=== PATIENT | male | born 1955 | race Caucasian/White ===

== ENCOUNTER 2020-05-17 14:30 | Outpatient (CLI) | payer MEDICARE, MEDICAID, SELFPAY ==
--- NOTE | 2020-05-17 15:00 | USCV_ITS ---
Alexx Killian Age: 64 Gender: M : 1955 Exam Date: 05/17/2020 15:02 Ordering Phys: Alvin Adrian M.D ([email or web address]) Technologist: Yazmin Spear Exam Location: [facility] – [place] Indication: BILATERAL SEVERE CLAUDICATION Risk Factors: Previous Vascular Surgery: RT-LT FEM-FEM BYPASS RIGHT LEFT BP: 133.0 / BP: 158.0/ 0 0 Waveform Velocity (cm/s) Velocity (cm/s) Waveform 80.1 Iliac Prox 94.1 Iliac Mid Iliac Distal 80.9 47.6 ASSET MANAGER 10.8 SFA Prox 10.3 16.7 SFA Mid 16.7 17.8 SFA Dist 18.2 20.4 POP 11.1 27.1 VP PACKAGING 11.2 0.6 MARYANN 0.6 FINDINGS RT-LT FEM-FEM BYPASS Low velocity delayed rising continuous Doppler waveform in the superficial femoral arteries bilaterally No Doppler flow signals in the left iliac and common femoral artery No Doppler flow signals in the dorsalis pedis arteries bilaterally No flow was detected in the femorofemoral bypass graft. Abnormal resting ABIs bilaterally CONCLUSIONS The femorofemoral bypass rate appears to be occluded Features of total occlusion of the left iliac and common femoral artery. Very sluggish flow in the superficial femoral arteries bilaterally. Features suggestive of collateral filling of the popliteal and infrapopliteal vessels bilaterally Dr Dina Sim MD [facility] (Electronically Signed) Final Date: 17 May 2020 20:31 S
== END 2020-05-17 14:31 | disposition home or self-care (01) ==
LOC: RAD 14:34
PROVIDERS: Family Provider Nurse Practitioner Family; PCP Nurse Practitioner Family; Visit Provider Internal Medicine
DX: I73.9 Peripheral vascular disease, unspecified (principal)
CPT/HCPCS: 93925

== ENCOUNTER → 2020-05-24 13:07 | Outpatient (BNVA) | payer MEDICARE, MEDICAID, SELFPAY | PROVIDERS: Family Provider Nurse Practitioner Family; PCP Nurse Practitioner Family; Visit Provider Internal Medicine | DX: I73.9 Peripheral vascular disease, unspecified (principal) | CPT/HCPCS: 80048 ==

== ENCOUNTER 2020-06-07 07:38 | Outpatient (CLI) | payer MEDICARE, MEDICAID, SELFPAY ==
--- NOTE | 2020-06-07 08:00 | CT_ITS ---
WS: [id number] CTA ABDOMINAL AORTA WITH RUNOFF TECHNIQUE: Contrast enhanced CTA of the abdominal aorta with bilateral lower extremity runoff. Multip lanar reformatted images were obtained. MIP reformats were also reviewed. CLINICAL INFORMATION: CTA of lower extremities to guide revascularization COMPARISON: None. DLP: 1187.[address] scans at [facility] use at least one of these dose optimization techniques: automat ed exposure control; mA and/or kV adjustment per patient size (includes targeted exams where dose is matched to clinical indication); or iterative reconstruction. FINDINGS: Postoperative changes aortic endograft with biiliac extension Distal abdominal aorta. RIGHT: High-grade stenosis right common iliac artery at the distal aspect of the stent. Distal common iliac artery is patent. External and internal iliac arteries are patent with mild calcification. Pro ximal common femoral artery is patent. Femorofemoral bypass graft appears occluded. Right superficial femoral artery is occluded at the origin. Deep femoral artery is patent. Superficial femoral artery is occluded with stent occluded to the adductor hiatus. Popliteal artery is occluded at the origin. T his reconstitutes via collaterals just above the knee and is patent to the trifurcation with three-ve ssel runoff to the ankle. LEFT: Common iliac artery stent is occluded. External iliac artery is occluded. External iliac artery is occluded to the common femoral artery which is also occluded. Femorofemoral bypass graft is occluded. Deep femoral artery is patent. Tiny superficial femoral arter y with collateral flow. Popliteal artery is patent above the knee. Normal 3 vessel runoff to the ankl e. CT/[id number] IMPRESSION: 1. RIGHT: High-grade stenosis of the right common iliac artery at the distal a spect of the stent. Common femoral artery is occluded at the origin. Superficia l femoral artery stent is occluded. Popliteal artery reconstitutes via collater als above the knee with three-vessel runoff to the ankle. 2. LEFT: Left common iliac artery stent is occluded. The external and common f emoral arteries are occluded. Tiny superficial femoral artery with collateral f low. Popliteal artery is patent with three-vessel runoff to the ankle. 3. Occluded femorofemoral bypass graft.
[2020-06-07] MEDS: iohexol 350 mg/mL 100 mL Btl IV (09:00)
== END 2020-06-07 07:39 | disposition home or self-care (01) ==
LOC: RADWPI 07:45
PROVIDERS: Family Provider Family Medicine; PCP Family Medicine; Visit Provider Internal Medicine
DX: I73.9 Peripheral vascular disease, unspecified (principal); T82.856A Stenosis of peripheral vascular stent, initial encounter; Y82.8 Other medical devices associated with adverse incidents
CPT/HCPCS: 73706; Q9967

== ENCOUNTER 2020-06-18 11:06 | Outpatient (CLI) | payer MEDICARE, MEDICAID, SELFPAY ==
[2020-06-18 11:49] LABS: Basophils # 0.1 10^3/uL (0.0-0.1); Basophils % 0.8 %; Eosinophils # 0.3 10^3/uL (0.0-0.8); Hematocrit 50.4 % (42.0-52.0); Hemoglobin 16.3 g/dL (11.7-16.6); Lymphocytes # 2.3 10^3/uL (0.8-4.8); Lymphocytes % 25.8 %; Mean Corpuscular HGB Conc 32.3 g/dL (30.0-36.0); Mean Corpuscular Volume 98.8 fL (80-94); Mean Platelet Volume 9.4 fL (7.4-10.4); Monocytes # 0.8 10^3/uL (0.2-0.9); Monocytes % 9.4 %; Neutrophils # 5.31 10^3/uL (1.8-7.7); Neutrophils % 60.7 %; Nucleated Red Blood Cells % 0 %; Platelet Count 221 10^3/cmm (130-400); Red Cell Distribution Width 12.7 % (12.1-15.1); White Blood Count 8.8 10^3/uL (4.0-10.0)
[2020-06-18 11:59] LABS: INR 0.83 (0.8-1.2)
[2020-06-18 12:07] LABS: Anion Gap 14.9 (5-19); Blood Urea Nitrogen 9 mg/dL (8-23); Calcium 9.2 mg/dL (8.5-10.5); Carbon Dioxide 26 mmol/L (22-29); Chloride 103 mmol/L (98-107); Glomerular Filtration Rate 85.5 mL/min (90-130); Glucose 109 mg/dL (65-115); Osmolality Calculated 285 mOsm/kg (285-295); Potassium 4.9 mmol/L (3.5-5.1); Sodium 139 mmol/L (136-145)
== END 2020-06-18 11:07 | disposition home or self-care (01) ==
LOC: LAB 11:10
PROVIDERS: Internal Medicine; PCP Family Medicine; Visit Provider Family Medicine
DX: Z01.812 Encounter for preprocedural laboratory examination (principal)
CPT/HCPCS: 36415; 80048; 85025; 85610; 87635

== ENCOUNTER 2020-06-22 07:16 | Day surgery (SDC) | payer MEDICARE, MEDICAID, SELFPAY ==
[2020-06-21 08:46] VITALS: BMI 30.2
[2020-06-22] VITALS (20 sets, daily range): BP systolic 128–182; BP diastolic 74–98; PULSE 60–79; RESP 13–23; TEMP 36.8; O2SAT 94–99
--- NOTE | 2020-06-22 | USCV_ITS ---
Alexx Killian Age: 64 Gender: M : 1955 Exam Date: 06/22/2020 09:04 Ordering Phys: Alvin Adrian M.D ([email or web address]) Technologist: Andre Herrera Exam Location: 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 Dr. Janee Acuña DO (Electronically Signed) Final Date: 22 June 2020 15:49 S
--- NOTE | 2020-06-22 07:00 | XACV_ITS ---
Wt: 96 kg BSA: 2.20 m2 Any Known Allergies: Other Gender: Male : 1955 Exam Type: Invasive Peripheral Vascular - Dual Bumpass Procedure(s): Procedure Description: Peripheral Cath Diagnostic Procedure Exam Priority: Routine Lower Extremity Diagnostic Findings Occluded right popliteal artery. Occluded Right SFA. Lower Extremity Interventional Findings Patient had been having severe claudication and is able to walk a few feet before leg pain forces him to take a rest. Yadi duran was brought to the [employer] [facility] to attempt revascularization of the right lower extremity. CTA with runoff was already done which showed three-vessel runoff to the foot however significant disease was noted above the knee. We obtained access in the right posterior tibial artery with ultrasound guidance. A 6 Serbian sheath was inserted. We used 0.035 Glidewire and seeker support catheter. Contrast injection showed proximal popliteal artery was occluded. SFA was completely occluded with occluded stents in it. We used a Glidewire and seeker catheter to attempt crossing the occluded segment. However Glidewire was tracking behind the SFA stent indicating that the wire was in dissection plane. We switched the support catheter to NAVICROSS but were unable to cross the long completely occluded segement. At this point we decided to stop further attempts at crossing the occluded segment. Guidewire and support catheter were removed. Sheath was removed from the right posterior tibial artery. Conclusions Severe peripheral artery disease. Severe bilateral lower extremity claudication. Unsuccessful attempt at revascularization of right lower extremity arteries. Recommendations We will attempt further optimization of medical therapy. Patient has been strongly advised to stop smoking. I have started cilostazol 50 mg twice daily. Stop Plavix. Continue aspirin. We will follow patient in office and reassess his symptoms. If there is no improvement in symptoms or progression of disease to critical limb ischemia, we will attempt revascularization of the left lower extremity. Access Site Site: Right Popliteal Sheath Size: 6 Fr Hemost... Success: Unsuccessful Site: Right Popliteal Sheath Size: 6 Fr Hemost... Method: Manual Compression Hemost... Success: Successful Procedure Details Findings Procedure Consent Obtained. Pre-Procedure Time Out. Identified patient by full name and date of as verbalized by the patient/guarantor. Does the consent match the physician's order: Yes. Accurate & Complete Informed Consent: Yes. Inpatient/Outpatient History & Physical on Chart: Yes. If H&P is completed, is and addenduem needed: N/A; If yes, is the addendum complete: N/A. Visualize and Verify Site with Patient/Guarantor: N/A. Relevant Radiology Images available: Yes. Pre-op teaching completed and patient verbalized understanding. The risks, benefits, and alternatives of sedation and/or procedure were discussed by physician. The patient agrees to continue. Procedure started. Correct patient, site and procedure confirmed by cath team. PERRLA. 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 Lungs clear x 5 lobes. IV Fluids: 0.9% NaCl at KVO. 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 Oxygen started at 2liters/min via nasal canula. bilateral groins was prepped with chloroprep then draped in the usual sterile fashion. Physician notified. Equipment: 6F - Femoral. Cardiac Cath Pack. ACIST Manifold Kit Model BT 2000. Heparinized Saline (2 units/mL), 1000 mL bag. Kit, Micropuncture. right tibial area prepped. Baseline sample Acquired. HR: 69 BPM. Physician arrived. Andre (US) here to assist. Physician scrubbed in. Immediate Pre-Procedure Time Out. Correct Patient: Yes; Correct Procedure: Yes; Correct Site: Yes; Correct Patient Position: Yes; Correct Supplies: Yes; Dried Flammable Prep: Yes; Blood Products Available: No;. Lidocaine 1% infiltrated to the right tibial. Arterial access obtained with micropuncture set. [place]leton wire inserted. Littleton wire out. Hand injection performed. Sheath out. Pressure held. Hand injection performed. [place]leton wire removed. seeker inserted over glide wire. Wire out. Hand injection performed. glidwire inserted. Patient's family unavailable. glide wire out. command wire inserted. wire out. glide wire inserted. seeker out. navicross inserted. navicross removed. sheath out. pressure held. US called. Lidocaine 1% infiltrated to the right groin. Patient's family updated. Andre (US) arrived. A Manual Compression was successful obtaining hemostatsis at the Right Popliteal insertion site. Sheath(s) removed and manual pressure held until hemostasis was achieved. Sterile 4x4 and Op-site applied to the puncture site. No oozing or hematoma noted. Post sheath removal instructions were given and the patient verbalized understanding. Post Procedure: Pulses reassessed and unchanged. PERRLA. 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 No VTE prophylaxis required. Fluoro: 37:50. Contrast type used: Visipaque 320 mgI/mL, 200 mL bottle. [id number]. Complications: none. Estimated blood loss: 5mL-10mL. Procedure completed. Patient transferred by bed to 1st floor. Post-op diagnosis: occluded right SFA. Total IV fluids: 150 mL. Vital chart was stopped. Medication's Wasted: Lidocaine 1% = 10 mL. Medication's Wasted: Heparin = 1000 units. Procedure Medications Start: 9:08 AM Stop: 9:08 AM Medication: Versed Amount: 1 mg Route: I.V. Start: 9:08 AM Stop: 9:08 AM Medication: Fentanyl Amount: 50 mcg Route: I.V. Start: 9:20 AM Stop: 9:20 AM Medication: Versed Amount: 1 mg Route: I.V. Start: 9:20 AM Stop: 9:20 AM Medication: Fentanyl Amount: 50 mcg Route: I.V. Start: 10:02 AM Stop: 10:02 AM Medication: Versed Amount: 1 mg Route: I.V. Start: 10:02 AM Stop: 10:02 AM Medication: Fentanyl Amount: 50 mcg Route: I.V. Start: 10:37 AM Stop: 10:37 AM Medication: Versed Amount: 1 mg Route: I.V. Start: 10:37 AM Stop: 10:37 AM Medication: Fentanyl Amount: 50 mcg Route: I.V. Start: 10:54 AM Stop: 10:54 AM Medication: Versed Amount: 1 mg Route: I.V. Start: 10:54 AM Stop: 10:54 AM Medication: Fentanyl Amount: 50 mcg Route: I.V. History/Risk Factors Hypertension: Yes Dyslipidemia: Yes Diabetic Therapy: Oral Peripheral Arterial Disease (PAD): Yes Myocardial Infarction (MN): Yes Obesity: No Renal Disease: No Tobacco Use: Current/Recent(w/in 1 year) Prior Interventions PCI: No CABG: No Valve Surgery: No Report Signatures Interventional Workflow - Finalized by:Alvin Adrian MD on 06/23/2020 10:19:35 AM Diagnostic Workflow - Finalized by:Alvin Adrian MD on 06/23/2020 10:19:35 AM
[2020-06-22] MEDS: diphenhydrAMINE 50 mg Capsule PO (07:52)
[2020-06-22] MEDS: aspirin 325 mg Tablet PO (08:10)
--- NOTE | 2020-06-22 08:19 | P.HP_ITS ---
Providers/Chief Complaint Primary Care Provider: Eduarda Bonds MD Chief Complaint: peripheral angiogram History of Present Illness Alexx Killian is a 64 year old male with past medical history of peripheral artery disease, diabetes, smoking and hypertension is here for peripheral angiogram with possible intervention. Patient has been having lifestyle limiting claudication and now can hardly walk a few feet before having to stop because of bilateral leg pain. CTA was performed that showed severe peripheral artery disease above the knee bilaterally with collaterals supplying below the knee vasculature with three-vessel runoff on both sides. We plan to attempt revascularization today. Review of Systems Narrative: CONSTITUTIONAL: No fever chills weight loss or gain or night sweats. [] HEENT: Normocephalic, atraumatic.[] RESPIRATORY: No cough, sputum, hemoptysis or wheezing.[] CARDIOVASCULAR: No shortness of breath, chest pain, PND, orthopnea, lower extremity edema, presyncope or syncope. [] GI: no nausea vomiting diarrhea. [] GAME PROTECTOR: No numbness, tingling, weakness or loss of function in any part of the body. [] MUSCULOSKELETAL: Bilateral leg pain [] Medications/Allergies Home Medications Medication Instructions Recorded Confirmed Last Taken Type aspirin 325 mg tablet 325 mg PO DAILY 12/16/19 06/22/20 06/22/20 07:55 History clopidogrel 75 mg tablet 75 mg PO DAILY 12/16/19 06/22/20 06/18/20 History ipratropium 20 mcg-albuterol 100 1 puff INHALATION Q4H PRN 12/16/19 06/22/20 Unknown History mcg/actuation mist for inhalation lisinopril 20 mg tablet 20 mg PO DAILY 12/16/19 06/22/20 06/22/20 06:00 History metformin 500 mg tablet 1,000 mg PO BID 12/16/19 06/22/20 06/21/20 18:00 History metoprolol tartrate 50 mg tablet 50 mg PO BID 12/16/19 06/22/20 06/22/20 06:00 History nitroglycerin 0.4 mg sublingual 0.4 mg SUBLINGUAL Q5M PRN 12/16/19 06/22/20 Unknown History tablet pravastatin 80 mg tablet 80 mg PO DAILY 90 Days #90 tab 12/22/19 06/22/20 06/21/20 18:00 Rx Allergies Allergy/AdvReac Type Severity Reaction Status Date / Time No Known Allergies Allergy Unverified 06/08/20 13:57 PFSH Acute PFSH: Medical History CAD (coronary artery disease) Dyslipidemia HTN (hypertension) Peripheral arterial disease Tobacco abuse Family History Other CAD (coronary artery disease) Cancer Diabetes Stroke Vitals/I&O/Wt Last Vital Signs Temp 98.3 F 06/22/20 07:47 Pulse 79 06/22/20 07:47 Resp 16 06/22/20 07:47 BP 182/93 06/22/20 07:47 Pulse Ox 99 06/22/20 07:47 Weight last 48 hrs Weight 211 lb Physical Exam Narrative: EXAM NARRATIVE: GENERAL: Patient is alert, awake and oriented x3. [] NECK: No jugular vein distension. [] HEENT: No cyanosis. No icterus. No pallor. [] HEART: Regular S1 and S2. No murmur, rub or gallop. [] LUNGS: Clear to auscultate bilaterally. [] ABDOMEN: Soft, nontender and nondistended. Positive bowel sounds. No guarding, rebound or tenderness. [] CENTRAL NERVOUS SYSTEM: Grossly nonfocal. [] EXTREMITIES: Lower extremities with no significant edema bilaterally. Markedly diminished pulses bilaterally. [] A&P Assessment and plan (1) Severe claudication: Status: Acute (2) CAD (coronary artery disease): Status: Acute (3) Tobacco abuse: Status: Acute (4) HTN (hypertension): Status: Acute (5) Peripheral arterial disease: Status: Acute (6) Dyslipidemia: Status: Acute Patient has severe lifestyle limiting claudication. Plan for peripheral intervention attempt. We will likely access from tibial artery. 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
--- NOTE | 2020-06-22 11:00 | PC.NURSE ---
pt received from slab lifting supervisor via bed. pt educated on bedrest restrictions. dressing is c/d/i. bilateral tibial pulses faint but dopplerable. call light within reach. no needs identified at this time. will continue to monitor.
[2020-06-22] MEDS: clopidogrel 75 mg Tablet PO (12:42)
--- NOTE | 2020-06-22 14:40 | PC.NURSE ---
pt and family informed of discharge orders. after pt completes bed rest if no issues arise pt could be discharged.
[2020-06-22] MEDS: metoprolol tartrate 50 mg Tablet PO (17:15)
[2020-06-22] MEDS: metformin 500 mg Tablet 1000 MG PO (17:15)
--- NOTE | 2020-06-22 17:46 | PC.NURSE ---
discharge instructions given. all questions answered at this time. iv removed, tip intact. pt escorted via wheelchair to vehicle.
== END 2020-06-22 17:49 | disposition home or self-care (01) ==
LOC: CCL 11:10 → CSU 11:43
PROVIDERS: PCP Family Medicine; Visit Provider Internal Medicine
DX: E11.51 Type 2 diabetes mellitus with diabetic peripheral angiopathy without gangrene (principal); I10 Essential (primary) hypertension; E78.5 Hyperlipidemia, unspecified; I25.10 Atherosclerotic heart disease of native coronary artery without angina pectoris; Z79.82 Long term (current) use of aspirin; Z79.84 Long term (current) use of oral hypoglycemic drugs
CPT/HCPCS: 12345; 36415; 76937; C1769; C1887; C1894; J1644; J2250; J3010; J7030; Q0163; Q9967

== ENCOUNTER → 2020-06-30 13:21 | Outpatient (BNVA) | payer MEDICARE, MEDICAID, SELFPAY | PROVIDERS: PCP Family Medicine; Visit Provider Nurse Practitioner Family | DX: I73.9 Peripheral vascular disease, unspecified (principal) | CPT/HCPCS: 80048 ==

== ENCOUNTER 2020-12-29 09:40 | Outpatient (CLI) | payer MEDICARE, MEDICAID, SELFPAY ==
[2020-12-29 10:03] LABS: Basophils # 0.1 10^3/uL (0.0-0.1); Basophils % 1.1 %; Eosinophils # 0.2 10^3/uL (0.0-0.8); Eosinophils % 2.7 %; Hematocrit 50.5 % (42.0-52.0); Hemoglobin 16.7 g/dL (11.7-16.6); Lymphocytes # 2.4 10^3/uL (0.8-4.8); Lymphocytes % 30.3 %; Mean Corpuscular HGB Conc 33.1 g/dL (30.0-36.0); Mean Corpuscular Hemoglobin 31.9 pg (28.0-34.0); Mean Corpuscular Volume 96.4 fL (80-94); Mean Platelet Volume 9.5 fL (7.4-10.4); Monocytes # 0.7 10^3/uL (0.2-0.9); Monocytes % 9.1 %; Neutrophils # 4.43 10^3/uL (1.8-7.7); Neutrophils % 56.5 %; Nucleated Red Blood Cells % 0 %; Platelet Count 236 10^3/cmm (130-400); Red Blood Count 5.24 10^6/uL (4.1-5.3); Red Cell Distribution Width 12.4 % (12.1-15.1); White Blood Count 7.8 10^3/uL (4.0-10.0)
[2020-12-29 10:31] LABS: Anion Gap 11.8 (5-19); Blood Urea Nitrogen 8 mg/dL (8-23); Calcium 9.2 mg/dL (8.5-10.5); Carbon Dioxide 30 mmol/L (22-29); Chloride 105 mmol/L (98-107); Glomerular Filtration Rate 97.6 mL/min (90-130); Glucose 96 mg/dL (65-115); Osmolality Calculated 294 mOsm/kg (285-295); Potassium 3.8 mmol/L (3.5-5.1); Sodium 143 mmol/L (136-145)
== END 2020-12-29 09:41 | disposition home or self-care (01) ==
PROVIDERS: PCP Family Medicine; Visit Provider Internal Medicine
DX: I73.9 Peripheral vascular disease, unspecified (principal)
CPT/HCPCS: 36415; 80048; 85025; 85610; 87635

== ENCOUNTER 2021-01-06 05:40 | Day surgery (SDC) | payer MEDICARE, MEDICAID, SELFPAY ==
[2021-01-06] VITALS (12 sets, daily range): BP systolic 106–166; BP diastolic 73–100; PULSE 60–92; RESP 13–18; TEMP 36.6; O2SAT 95–99; BMI 30.5
--- NOTE | 2021-01-06 06:21 | XACV_ITS ---
Ht: 178 cm Wt: 97 kg BSA: 2.21 m2 Any Known Allergies: Other Gender: Male : 1955 Exam Type: Invasive Peripheral Vascular Procedure(s): Procedure Description: Peripheral Cath Diagnostic Procedure Procedure Description: Peripheral arthrectomy Procedure Description: Peripheral stent placement Procedure Description: Peripheral balloon angioplasty Exam Priority: Routine Lower Extremity Diagnostic Findings Indication: Patient has severe peripheral artery disease history with unsuccessful attempt at revascularization of right lower extremity. He has been having severe lifestyle limiting claudication in both lower extremities. Plan for attempt at revascularization of left lower extremity. Per prior CT scan of the lower extremities, no access site available from contralateral side or ipsilateral side above the knee.. Patient continues to smoke. Patient has three-vessel runoff below the knee on the left side with patent AT, PT and peroneal artery. Slow flow is noted. Left popliteal artery: Patent Left SFA: Mid segment occlusion Left common femoral artery: Occluded Left external and common iliac arteries have stents that are occluded. Distal aorta subtotal occlusion.. Lower Extremity Interventional Findings Procedure detail: We obtained access in left popliteal artery. Angiogram was performed that showed occluded mid SFA artery. Using seeker support catheter 0.035 Glidewire was used to cross into distal aorta. We initially performed CSI atherectomy of SFA. This was followed by balloon angioplasty starting from left common iliac artery using initially a 6.0X 250 mm balloon followed by a 7.0 X 100 mm balloon in external and common iliac arteries. We also performed balloon angioplasty of the prox SFA with a 7.0x60mm balloon. At this time we extended a pigtail catheter into distal aorta and did DSA that showed an occlusion at ostial common iliac artery. Right-sided iliac arteries were occluded with occluded stents on both sides.We placed a 7.0x 59mm Omnilink stent in the ostial left common iliac artery extending into the distal aorta. Proximal SFA also had severe stenosis and was treated with 6.0 x 39 mm Omnilink stent. At this time another angiogram was performed that showed that in mid to distal SFA, there was a hazy severe stenosis. We initially did balloon angioplasty however the stenosis treated today. We placed a 6.0 x 19 mm stent to cover the area of stenosis. At this time final angiogram was performed that showed excellent flow throughout the left lower extremity vasculature. Was sutured in place for removal later. 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 Conclusions Severe peripheral artery disease with occluded vasculature starting from distal aorta/left common iliac artery down to the mid SFA. Successful reavascularization with orbital arthrectomy/stents x 3 and multiple balloon angioplasties. Occluded right common iliac artery. Recommendations Admit to CSU. Eliquis 2.5mg BID and Plavix 75mg Daily. Smoking cessation strongly suggested. Will discuss options for revascularization of the right lower extremity on his clinic visit. Outpatient cardiology follow up. Access Site Site: Left Popliteal Sheath Size: 6 Fr Hemost... Method: Suture Hemost... Success: Successful Procedure Details Findings Procedure Consent Obtained. Admit Source: Out Patient. Pre-Procedure Time Out. Identified patient by full name and date of as verbalized by the patient/guarantor. Does the consent match the physician's order: Yes. Accurate & Complete Informed Consent: Yes. Inpatient/Outpatient History & Physical on Chart: Yes. If H&P is completed, is and addenduem needed: N/A; If yes, is the addendum complete: N/A. Visualize and Verify Site with Patient/Guarantor: N/A. Relevant Radiology Images available: N/A. Pre-op teaching completed and patient verbalized understanding. The risks, benefits, and alternatives of sedation and/or procedure were discussed by physician. The patient agrees to continue. Procedure started. Correct patient, site and procedure confirmed by cath team. PERRLA. Strong, equal hand small package and bundle sorter clerk bilaterally. Lungs clear x 5 lobes. IV Site on Arrival: 20 gauge in the right anticubital. Pre Procedural Pulses: bilateral dorsalis pedis was Absent. Pre Procedural Pulses: bilateral posterior tibial was Doppled. Pre Procedural Pulses: bilateral radial was 1+. Oxygen started at 2liters/min via nasal canula. popliteal was prepped with chloroprep then draped in the usual sterile fashion. Physician notified. Baseline sample Acquired. HR: 118 BPM. Physician arrived. ultra sound arrived. Physician scrubbed in. Immediate Pre-Procedure Time Out. Correct Patient: Yes; Correct Procedure: Yes; Correct Site: Yes; Correct Patient Position: Yes; Correct Supplies: Yes; Dried Flammable Prep: Yes; Blood Products Available: N/A;. Dr. Elizabeth scrubbed in for assistance. Lidocaine 1% infiltrated to the left popliteal. Arterial access obtained with micropuncture set. handinjection performed. glidewire inserted. seeker going in over stiff angle glide. hand injection performed through the seeker. seeker is seated in the prox SFA. wire out. hand injection performed through the seeker. seeker seating in the descending aorta. viper wire inserted. anthorectomy of the common femoral and SFA. seeker out. shahida going in over viper wire. antherectomy performed in the prox SFA. coming out with device. seeker inserted. viper wire out. stiff angle glide inserted. seeker out. Inflation number : 1 A AB [place] 35 CUT FILE CLERK Catheter [id number] was prepped and advanced across the Proximal Common Iliac, Left , then inflated to 6 POONAM for 2:01 seconds. Inflation number: 1 The AB [place] 35 CUT FILE CLERK Catheter [id number] was reinflated across the Proximal Superficial Femoral, Left, to 12 POONAM for 2:03 seconds. Inflation number: 1 The AB [place] 35 CUT FILE CLERK Catheter [id number] was reinflated across the Mid Superficial Femoral, Left, to 16 POONAM for 2:01 seconds. Balloon out. Inflation number: 3 The AB [place] 35 OTW [id number] was reinflated across the Proximal Common Iliac, Left, to 6 POONAM for 2:01 seconds. Inflation number: 1 The AB [place] 35 OTW [id number] was reinflated across the External Iliac, Right, to 8 POONAM for 2:03 seconds. Inflation number: 2 The AB [place] 35 OTW [id number] was reinflated across the External Iliac, Right, to 8 POONAM for 1:01 seconds. Balloon out. Inflation number : 1 A AB [place] 35 OTW [id number] was prepped and advanced across the Proximal Superficial Femoral, Left , then inflated to 6 POONAM for 0:19 seconds. Inflation number: 2 The AB [place] 35 OTW [id number] was reinflated across the Proximal Superficial Femoral, Left, to 8 POONAM for 0:12 seconds. Inflation number: 3 The AB [place] 35 OTW [id number] was reinflated across the Proximal Superficial Femoral, Left, to 6 POONAM for 0:15 seconds. Inflation number: 4 The AB [place] 35 OTW [id number] was reinflated across the Proximal Superficial Femoral, Left, to 8 POONAM for 0:16 seconds. Inflation number: 5 The AB [place] 35 OTW [id number] was reinflated across the Proximal Superficial Femoral, Left, to 12 POONAM for 0:13 seconds. Inflation number: 6 The AB [place] 35 OTW [id number] was reinflated across the Proximal Superficial Femoral, Left, to 10 POONAM for 0:10 seconds. Balloon out. Inflation number : 2 A AB [place] 35 OTW [id number] was prepped and advanced across the Proximal Superficial Femoral, Left , then inflated to 8 POONAM for 0:18 seconds. Inflation number: 3 The AB [place] 35 OTW [id number] was reinflated across the Proximal Superficial Femoral, Left, to 15 POONAM for 1:50 seconds. Balloon out. Balloon out. A 5 citizen [place] Angled Pig catheter in over wire. Pigtail postioned above the bifurcation of the iliacs. Aortagram performed @ 10 mL/sec for a total of 40 mL. glide wire inserted. Catheter out. A 5 citizen [place] MPA1 catheter in over wire. glide wire out. glidewire inserted. Catheter out. Inflation Number : 1 A Omnilink Elite [id number] -Lot Number# [id number] exp date: 08-07-2023 was prepped and advanced across the Ostial Common Iliac, Left1. The stent was deployed at 11 POONAM for 1:02 seconds. Stent balloon out over wire. A 5 citizen [place] Angled Pig catheter in over wire. wire out. Pigtail postioned above the bifurcation of the iliacs. Aortagram performed @ 10 mL/sec for a total of 20 mL. runoff 10ml/sec for a total of 30mL. checking results. glidewire inserted. Catheter out. old sheath out and holding mannual pressure. new 6F sheath inserted into popliteal region. handinjection performed. Inflation number : 1 A AB [place] 35 OTW [id number] was prepped and advanced across the Popliteal, Left , then inflated to 14 POONAM for 1:18 seconds. Inflation number: 2 The AB [place] 35 OTW [id number] was reinflated across the Popliteal, Left, to 14 POONAM for 1:06 seconds. Inflation number: 3 The AB [place] 35 OTW [id number] was reinflated across the Popliteal, Left, to 14 POONAM for 0:12 seconds. Inflation number: 4 The AB [place] 35 OTW [id number] was reinflated across the Popliteal, Left, to 14 POONAM for 1:07 seconds. Balloon out. handinjection performed. handinjection performed. Inflation Number : 5 A Omnilink Elite [id number] -Lot Number#[id number] exp date: 05-07-2021 was prepped and advanced across the Popliteal, Left. The stent was deployed at 12 POONAM for 1:10 seconds. handinjection perfomed. checking results. A 5 citizen [place] Angled Pig catheter in over wire. wire out. Pigtail postioned above the bifurcation of the iliacs. Aortagram performed @ 10 mL/sec for a total of 40 mL. checking results. Catheter out. stent out. undeployed. Inflation number : 4 A Omnilink Elite [id number] was prepped and advanced across the Proximal Superficial Femoral, Left , then inflated to 12 POONAM for 1:01 seconds. Stent balloon out over wire. handinjection performed 10mL/sec for a total of 30mL. checking results. Inflation number: 6 The Omnilink Elite [id number] was reinflated across the Proximal Superficial Femoral, Left, to 12 POONAM for 0:18 seconds. Inflation number: 1 The Omnilink Elite [id number] was reinflated across the Proximal Superficial Femoral, Left1, to 14 POONAM for 0:51 seconds. Inflation number: 2 The Omnilink Elite [id number] was reinflated across the Proximal Superficial Femoral, Left1, to 10 POONAM for 1:03 seconds. A 5 citizen [place] Angled Pig catheter in over wire. wire out. Pigtail postioned above the bifurcation of the iliacs. Aortagram performed @ 10 mL/sec for a total of 20 mL. Catheter out. Inflation Number : 1 A Omnilink Elite [id number] -Lot Number# was prepped and advanced across the Mid Superficial Femoral, Left1. The stent was deployed at 12 POONAM for 0:29 seconds. Inflation number: 2 The stent balloon was then re-inflated across the Mid Superficial Femoral, Left1 to 14 POONAM for 0:31 seconds. Stent balloon out over wire. A 5 citizen [place] Angled Pig catheter in over wire. Pigtail postioned above the bifurcation of the iliacs. Aortagram performed @ 10 mL/sec for a total of 40 mL. checking results. glidewire inserted. Catheter out. wire out. Sheath(s) sutured into position with 2-0 silk and sterile 4x4's and Op-site applied over the site. No oozing or signs and symptoms of hematoma noted. Post Procedure: Pulses reassessed and unchanged. PERRLA. Strong, equal hand small package and bundle sorter clerk bilaterally. Medication's Wasted: Lidocaine 1% = 10 mL. Medication's Wasted: Heparin = 2000 units. Medication's Wasted: Nitro = 49.2 mg. No VTE prophylaxis required. Total IV fluids: 425 mL. Contrast type used: Visipaque 320 mgI/mL, 500 mL bottle. Contrast Material : Visipaque 293 ml. Post-op diagnosis: severe peripheral artery disease. Complications: none. Estimated blood loss: 5mL-10mL. A Suture was successful obtaining hemostatsis at the Left Popliteal insertion site. Procedure completed. Patient transferred by bed to 1st floor. Vital chart was stopped. Procedure started. Procedure Medications Start: 7:35 AM Stop: 7:35 AM Medication: Fentanyl Amount: 50 mcg Route: I.V. Start: 7:39 AM Stop: 7:39 AM Medication: Versed Amount: 1 mg Route: I.V. Start: 7:45 AM Stop: 7:45 AM Medication: Versed Amount: 1 mg Route: I.V. Start: 7:53 AM Stop: 7:53 AM Medication: Fentanyl Amount: 25 mcg Route: I.V. Start: 7:54 AM Stop: 7:54 AM Medication: Versed Amount: 1 mg Route: I.V. Start: 8:10 AM Stop: 8:10 AM Medication: Versed Amount: 1 mg Route: I.V. Start: 8:10 AM Stop: 8:10 AM Medication: Fentanyl Amount: 25 mcg Route: I.V. Start: 8:17 AM Stop: 8:17 AM Medication: Versed Amount: 1 mg Route: I.V. Start: 8:25 AM Stop: 8:25 AM Medication: Versed Amount: 1 mg Route: I.V. Start: 8:33 AM Stop: 8:33 AM Medication: Heparin Amount: 5000 units Route: I.V. Start: 8:37 AM Stop: 8:37 AM Medication: Versed Amount: 1 mg Route: I.V. Start: 8:39 AM Stop: 8:39 AM Medication: Fentanyl Amount: 25 mcg Route: I.V. Start: 8:40 AM Stop: 8:40 AM Medication: Versed Amount: 1 mg Route: I.V. Start: 8:51 AM Stop: 8:51 AM Medication: Versed Amount: 1 mg Route: I.V. Start: 8:51 AM Stop: 8:51 AM Medication: Fentanyl Amount: 25 mcg Route: I.V. Start: 8:56 AM Stop: 8:56 AM Medication: Versed Amount: 1 mg Route: I.V. Start: 8:57 AM Stop: 8:57 AM Medication: Fentanyl Amount: 25 mcg Route: I.V. Start: 9:05 AM Stop: 9:05 AM Medication: Versed Amount: 1 mg Route: I.V. Start: 9:11 AM Stop: 9:11 AM Medication: Heparin Amount: 3000 units Route: I.V. Start: 9:18 AM Stop: 9:18 AM Medication: Versed Amount: 1 mg Route: I.V. Start: 9:25 AM Stop: 9:25 AM Medication: Versed Amount: 1 mg Route: I.V. Start: 9:28 AM Stop: 9:28 AM Medication: Fentanyl Amount: 50 mcg Route: I.V. Start: 9:32 AM Stop: 9:32 AM Medication: Versed Amount: 1 mg Route: I.V. Start: 9:45 AM Stop: 9:45 AM Medication: Fentanyl Amount: 50 mcg Route: I.V. Start: 10:19 AM Stop: 10:19 AM Medication: Versed Amount: 1 mg Route: I.V. Start: 10:30 AM Stop: 10:30 AM Medication: Heparin Amount: 2000 units Route: I.V. Start: 10:30 AM Stop: 10:30 AM Medication: Versed Amount: 1 mg Route: I.V. Start: 10:51 AM Stop: 10:51 AM Medication: Fentanyl Amount: 25 mcg Route: I.V. Start: 10:58 AM Stop: 10:58 AM Medication: Nitrogylcerin Amount: 400 mcg Route: I.A. Start: 11:04 AM Stop: 11:04 AM Medication: Versed Amount: 1 mg Route: I.V. Start: 11:19 AM Stop: 11: AM Medication: Versed Amount: 1 mg Route: I.V. Start: 11:25 AM Stop: 11:25 AM Medication: Versed Amount: 1 mg Route: I.V. Start: 11:28 AM Stop: 11: AM Medication: Fentanyl Amount: 50 mcg Route: I.V. Start: 11:31 AM Stop: 11:31 AM Medication: Nitrogylcerin Amount: 400 mcg Route: I.A. Start: 11:35 AM Stop: 11:35 AM Medication: Plavix Amount: 300 mg Route: P.O. History/Risk Factors Hypertension: Yes Dyslipidemia: Yes Tobacco Use: Current/Recent(w/in 1 year) Report Signatures Finalized by Alvin Adrian MD on 01/20/2021 11:09 PM
[2021-01-06] MEDS: diphenhydrAMINE 50 mg Capsule PO (06:50)
--- NOTE | 2021-01-06 07:26 | USCV_ITS ---
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 Popliteal vein and artery was identified. Appears to be patent Conclusions Popliteal vein and artery was identified No Doppler exam. Dr Dina Sim MD [facility] (Electronically Signed) Final Date: 07 January 2021 09:11 S
--- NOTE | 2021-01-06 07:45 | W.PM.OPSUD ---
Surgery/Procedure H&P Update DATE OF PROCEDURE: January 06, 2021 DATE H&P PERFORMED: 12/10/20 H&P UPDATE INFORMATION: I have reviewed H&P completed within last 30 days, I have examined patient prior to procedure and No changes to prior documentation CHANGES TO PREVIOUS DOCUMENTATION: We had a discussion regarding risks and benefits of the procedure. Increased risk associated and benefits of drug coated balloons. Patient understands the risks and benefits and wants to proceed with the procedure. PREOP DIAGNOSIS: Life style limiting claudication PRIMARY INDICATION FOR PROCEDURE: Lifestyle limiting claudication PLANNED PROCEDURE: Operation Date: 01/06/21 07:00 Proposed Procedures p Peripheral Diagnostic 18664 I73.9(Not Applicable) - Alvin Adrian M.D Peripheral artery interventino PATIENT REASSESSED PRIOR TO SEDATION, WITH NO CHANGE NOTED: Yes PHYSICAL EXAM: alert, oriented x 3 and clear to auscultation bilaterally AIRWAY EVAL/ANESTHESIA PLAN: ASA III, Risks, benefits & alternatives of sedation and/or procedure discussed and Patient agrees to continue as planned
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
--- NOTE | 2021-01-06 12:09 | PC.NURSE ---
At bedside report. DANIELLE Gutierrez from livestock laborer reports patient has post tibial pulses bilat with doppler, but no dorsalis pedis pulses.
[2021-01-06 13:47] LABS: Glucose Point of Care 82 mg/dL (70-110)
[2021-01-06 14:11] LABS: Partial Thromboplastin Time 48.5 SECONDS (23.9-36.7)
[2021-01-06] MEDS: sodium chloride 0.9% 1,000 ML 100 ML IV (14:40)
--- NOTE | 2021-01-06 15:30 | PC.NURSE ---
Patient positioned prone. Left popliteal sheath removed by Dr. Adrian. Manual pressure held by doctor. No oozing or hematoma present. 2x2 and opsite appleid to site Patient instructed to keep left leg straight x 4 hrs.
[2021-01-06] MEDS: apixaban 5 mg Tablet 2.5 MG PO (20:44)
[2021-01-06] MEDS: cilostazol 100 mg Tablet 50 MG PO (20:47)
[2021-01-06] MEDS: temazepam 15 mg Capsule PO (20:47)
[2021-01-07 04:01] VITALS: BP 110/67; PULSE 80; RESP 20; TEMP 36.7; O2SAT 92
[2021-01-07 05:01] LABS: Basophils # 0.1 10^3/uL (0.0-0.1); Basophils % 0.6 %; Eosinophils # 0.2 10^3/uL (0.0-0.8); Eosinophils % 1.7 %; Hematocrit 44.8 % (42.0-52.0); Hemoglobin 14.7 g/dL (11.7-16.6); Lymphocytes # 1.3 10^3/uL (0.8-4.8); Lymphocytes % 14.7 %; Mean Corpuscular HGB Conc 32.8 g/dL (30.0-36.0); Mean Corpuscular Hemoglobin 31.9 pg (28.0-34.0); Mean Corpuscular Volume 97.2 fL (80-94); Monocytes # 0.7 10^3/uL (0.2-0.9); Monocytes % 8.5 %; Neutrophils # 6.48 10^3/uL (1.8-7.7); Neutrophils % 74.3 %; Nucleated Red Blood Cells % 0 %; Platelet Count 167 10^3/cmm (130-400); Red Blood Count 4.61 10^6/uL (4.1-5.3); Red Cell Distribution Width 12.5 % (12.1-15.1); White Blood Count 8.7 10^3/uL (4.0-10.0)
[2021-01-07 05:27] LABS: Anion Gap 13.2 (5-19); Blood Urea Nitrogen 9 mg/dL (8-23); Calcium 8.2 mg/dL (8.5-10.5); Carbon Dioxide 23 mmol/L (22-29); Chloride 106 mmol/L (98-107); Glomerular Filtration Rate 136.1 mL/min (90-130); Glucose 95 mg/dL (65-115); Osmolality Calculated 284 mOsm/kg (285-295); Potassium 4.2 mmol/L (3.5-5.1); Sodium 138 mmol/L (136-145)
[2021-01-07] MEDS: sodium chloride 0.9% 1,000 ML 100 ML IV (05:55)
[2021-01-07 06:00] VITALS: PULSE 71
[2021-01-07 07:19] VITALS: BP 131/91; PULSE 103; RESP 14; TEMP 36.9; O2SAT 91
[2021-01-07 07:47] VITALS: PULSE 79; RESP 17; O2SAT 97
[2021-01-07] MEDS: apixaban 5 mg Tablet 2.5 MG PO (08:19)
[2021-01-07] MEDS: cilostazol 100 mg Tablet 50 MG PO (08:20)
[2021-01-07] MEDS: metoprolol tartrate 50 mg Tablet PO (08:20)
[2021-01-07] MEDS: aspirin 81 mg EC Tablet PO (08:20)
[2021-01-07] MEDS: lisinopril 20 mg Tablet PO (08:20)
--- NOTE | 2021-01-07 08:37 | PC.NURSE ---
Telephone order from Dr Adrian to hold metformin this am. RBTO.
--- NOTE | 2021-01-07 09:17 | P.SS_ITS ---
Short Stay Summary Providers Date of Admit/Discharge: 01/09/21 Attending Provider: Alvin Adrian M.D Primary Care Provider: Eduarda Bonds MD Chief Complaint: PVD HPI History of Present Illness Alexx Killian is a 65 year old male with a history of tobacco abuse, diabetes, pacemaker placed for sick sinus syndrome, dyslipidemia, history of coronary disease and myocardial infarction, peripheral artery disease, and hypertension. He has presented for follow-up. Patient underwent peripheral procedure in June where we attempted to revascularize right SFA but were not successful. Patient has been on aspirin and Cilostazol. He continues to have severe bilateral leg pain that limits his walking to few feet. No open wounds or ulcers. Patient is here for revascularization of the left lower extremity for lifestyle limiting severe claudication. Review of Systems General: Reports: 10 or more systems reviewed and unremarkable except in HPI and below Const: Denies: fever(s), chills, body aches, change in weight, fatigue or diaphoresis Eyes: Denies: change in vision or blurry vision ENMT: Denies: throat pain, odynophagia, mouth pain or epistaxis Card: Reports: dyspnea on exertion and leg pain with exertion; Denies: chest pain, palpitations, irregular heart rhythm, edema, lightheadedness, syncope, pre-syncope or orthopnea Resp: Reports: dyspnea (smokes); Denies: productive cough, non-productive cough or wheezing GI: Denies: nausea, vomiting, hematemesis, hematochezia or melena : Denies: difficulty urinating or hematuria Musc: Denies: neck pain, extremity swelling or joint pain Skin/Breast: Denies: rash or pruritus Neuro: Reports: numbness in extremities (both legs); Denies: headache(s), weakness in extremities, sensory changes, dizziness or vertigo Psych: Denies: anxiety, depression, irritability, suicidal ideation or homicidal ideation Endo: Denies: polyuria, polydipsia or excessive sweating Royce/Lymph: Denies: easy bruising or easy bleeding Home Meds/Allergies Home Medications and Allergies Home Medications Medication Instructions Recorded Confirmed Type ipratropium 20 mcg-albuterol 100 1 puff INHALATION Q4H PRN 12/16/19 01/06/21 History mcg/actuation mist for inhalation lisinopril 20 mg tablet 20 mg PO DAILY 12/16/19 01/06/21 History metformin 500 mg tablet 1,000 mg PO BID 12/16/19 01/06/21 History metoprolol tartrate 50 mg tablet 50 mg PO BID 12/16/19 01/06/21 History nitroglycerin 0.4 mg sublingual 0.4 mg SUBLINGUAL Q5M PRN 12/16/19 01/06/21 History tablet Allergies Allergy/AdvReac Type Severity Reaction Status Date / Time No Known Allergies Allergy Verified 12/10/20 11:05 PFSH Acute PFSH: Medical History CAD (coronary artery disease) Dyslipidemia HTN (hypertension) Peripheral arterial disease Tobacco abuse Family History Other CAD (coronary artery disease) Cancer Diabetes Stroke Social History Smoking and tobacco status: current every day smoker cigarettes Packs smoked per day: 1.5 Other details last substance use: patient occasionally uses marijuana for pain. last used last week Vitals/I&O/Wt Last Vital Signs Temp 98.4 F 01/07/21 07:19 Pulse 79 01/07/21 07:47 Resp 17 01/07/21 07:47 BP 131/91 01/07/21 07:19 Pulse Ox 97 01/07/21 07:47 01/06/21 01/07/21 01/07/21 22:59 06:59 14:59 Intake Total 120 / 120 1000 / 1120 0 / 0 Output Total 1080 / 1080 625 / 1705 Balance -960 / -960 375 / -585 0 / 0 Weight last 48 hrs Weight 213 lb Physical Exam Narrative: EXAM NARRATIVE: GENERAL: Patient is alert, awake and oriented x3. [] NECK: No jugular vein distension. [] HEENT: No cyanosis. No icterus. No pallor. [] HEART: Regular S1 and S2. No murmur, rub or gallop. [] LUNGS: Clear to auscultate bilaterally. [] ABDOMEN: Soft, nontender and nondistended. Positive bowel sounds. No guarding, rebound or tenderness. [] CENTRAL NERVOUS SYSTEM: Grossly nonfocal. [] EXTREMITIES: Lower extremities with no significant edema bilaterally. Markedly diminished pulses bilaterally. [] Hospital Course Hospital Course 64-year-old man with a history of tobacco abuse, diabetes, pacemaker placed for sick sinus syndrome, dyslipidemia, history of coronary disease and myocardial infarction, peripheral artery disease, and hypertension. He has presented for follow-up. Patient underwent peripheral procedure in June where we attempted to revascularize right SFA but were not successful. Patient has been on aspirin and Cilostazol. He continues to have severe bilateral leg pain that limits his walking to few feet. No open wounds or ulcers. We performed successful revascularization of the left lower extremity through popliteal access. He had CLIENT MANAGER of the mid SFA and the vessel was occluded all the way to the distal abdominal aorta. Patient to be discharged on Eliquis 2.5mg BID along with plavix for a month. Will have follow up with cardiology as outpatient and will discuss potential revascularization options of the right side. SSS Data Data Completed and Pending: Completed Studies During Hospitalization Category Date Time Status CV guide vascular access 10470 Rout ine Ultrasound 01/06/21 07:26 Completed Pending at discharge Category Date Time Status PLASTER LATHER request for service Routin e Exams 01/06/21 06:21 Taken Discharge Plan Discharge Patient Disposition: Home Condition: Stable Prescriptions: New Eliquis 5 mg Tablet 2.5 mg PO BID@0900,2100 Qty: 60 RF: 0 Plavix 75 mg tablet 75 mg PO DAILY Qty: 60 RF: 1 Continued lisinopril 20 mg tablet 20 mg PO DAILY RF: 0 metoprolol tartrate 50 mg tablet 50 mg PO BID RF: 0 Combivent Respimat 20-100 mcg/actuation mist 1 puff INHALATION Q4H PRN (Reason: SOB) RF: 0 nitroglycerin [Nitrostat] 0.4 mg tablet, sublingual 0.4 mg SUBLINGUAL Q5M PRN (Reason: Chest Pain) RF: 0 pravastatin 80 mg tablet 80 mg PO DAILY 90 Days Qty: 90 RF: 3 cilostazol 50 mg tablet 50 mg PO BID Qty: 60 RF: 3 Held metformin 500 mg tablet 1,000 mg PO BID RF: 0 Hold Instructions: Resume on 01/09/21. Discontinued aspirin [Adult Aspirin Regimen] 81 mg tablet,delayed release (DR/EC) 81 mg PO DAILY Qty: 30 RF: 3 Discharge Orders: Discharge Order (Routine); Ordered 01/07/21 Ordered By: Alvin Adrian Referrals: Alvin Adrian M.D [Physician] - 02/07/21 3:45 pm (You have a cardiology followup scheduled at [facility] [address] on February 07 at 3:45pm) Melinda Miller FNP [Nurse Practitioner] - 01/14/21 10:30 am (You have a post procedure followup scheduled at [facility] on January 14 at 10:30am) Discharge Diet: Cardiac Discharge Activity: Increase activity as tolerated Patient Instructions: Clopidogrel (By mouth), Apixaban (By mouth), How to Stop Smoking (DC), Peripheral Vascular Angioplasty (DC), Post Angiogram Home Care Instructions Attestations Medical Necessity Statement*: Care not expected to cross 2 midnights. Patient underwent successful revascularization of the left lower extremity. Time Spent in Patient Care*: greater than 30 min Quality Metrics Clinical Quality Measures: During this hospital stay, did patient experience: None Coding Level of Care Code Acute Baker Apprentice for Alonso Huang
[2021-01-07 09:32] VITALS: BP 131/91; PULSE 79; RESP 17; TEMP 36.9; O2SAT 97
--- NOTE | 2021-01-07 10:02 | PC.NURSE ---
Discharge instructions given per the physician's orders. Patient verbalized understanding of teaching and did not have any further questions. IV has been removed. Patient dressed self. No further needs identified at this time.
== END 2021-01-07 10:15 | disposition home or self-care (01) ==
LOC: CCL 05:44 → ICU 07:38 → CSU 10:27
PROVIDERS: PCP Family Medicine; Visit Provider Internal Medicine
DX: I73.9 Peripheral vascular disease, unspecified (principal); Z87.891 Personal history of nicotine dependence; E11.9 Type 2 diabetes mellitus without complications; Z95.0 Presence of cardiac pacemaker; E78.5 Hyperlipidemia, unspecified; I25.10 Atherosclerotic heart disease of native coronary artery without angina pectoris; I25.2 Old myocardial infarction; Z79.84 Long term (current) use of oral hypoglycemic drugs; I10 Essential (primary) hypertension; Z82.49 Family history of ischemic heart disease and other diseases of the circulatory system
CPT/HCPCS: 36415; 36416; 37221; 37227; 75625; 75716; 76937; 80048; 82962; 85025; 85730; C1724; C1725; C1769; C1887; C1894; J1644; J2250; J3010; J3490; J7030; Q0163; Q9967

== ENCOUNTER → 2021-01-14 11:34 | Outpatient (BNVA) | payer MEDICARE, MEDICAID, SELFPAY | PROVIDERS: PCP Family Medicine; Visit Provider Nurse Practitioner Family | DX: I73.9 Peripheral vascular disease, unspecified (principal) | CPT/HCPCS: 80048 ==

== ENCOUNTER → 2021-04-28 11:22 | Outpatient (BNVA) | payer MEDICARE, MEDICAID, SELFPAY | PROVIDERS: PCP Nurse Practitioner Family; Referring Provider Internal Medicine; Visit Provider Internal Medicine | DX: Z20.822 Contact with and (suspected) exposure to COVID-19 (principal); I73.9 Peripheral vascular disease, unspecified; Z01.818 Encounter for other preprocedural examination | CPT/HCPCS: 80048; 85025; 85610; 87635 ==

== ENCOUNTER 2021-05-04 13:46 | Observation (INO) | payer MEDICARE, MEDICAID, SELFPAY ==
[2021-05-04] VITALS (21 sets, daily range): BP systolic 105–178; BP diastolic 63–93; PULSE 67–90; RESP 16–27; TEMP 36.4–36.9; O2SAT 94–98; BMI 31.5
--- NOTE | 2021-05-04 | XACV_ITS ---
Wt: 100 kg BSA: 2.25 m2 Any Known Allergies: Other Gender: Male : 1955 Exam Type: Invasive Peripheral Vascular Procedure(s): Procedure Description: Peripheral Cath Diagnostic Procedure Procedure Description: Lower extremities angiography Exam Priority: Routine Lower Extremity Diagnostic Findings Right popliteal artery: Proximal occlusion. In the mid segment it is filled via collaterals. Right TP segment: Patent Right Anterior tibial artery: Patent Right Posterior tibial artery: Patent Right Peroneal artery: Patent. Lower Extremity Interventional Findings Procedure details: Access was obtained with a pedal access kit in right popliteal artery. We attempted to cross the proximal popliteal stenosis with a Glidewire. However after multiple attempts, occluded cap could not be penetrated. Wire kept going into the collateral. As there are no robust collaterals, we aborted the procedure here as further attempts could occluded the collateral supply to the lower extremity. INDICATION: Severe lifestyle limiting claudication. Plan for revascularization of the right lower extremity from popliteal artery access. Conclusions Severe peripheral artery disease with occlusion of the proximal popliteal artery (long occluded segment from ostial common iliac artery stent to the proximal popliteal artery). Unsuccessful revascularization attempt from popliteal access. Recommendations Patient will be referred to vascular surgery for bypass surgery as has good popliteal target and run off to the foot. Aggressive risk factor modification and medical therapy. Access Site Site: Right Popliteal Sheath Size: 4 Fr Hemost... Method: Manual Compression Hemost... Success: Successful Procedure Details Findings Pre-Procedure Time Out. Identified patient by full name and date of as verbalized by the patient/guarantor. Does the consent match the physician's order: Yes. Accurate & Complete Informed Consent: Yes. Inpatient/Outpatient History & Physical on Chart: Yes. If H&P is completed, is and addenduem needed: Yes; If yes, is the addendum complete: Yes. Visualize and Verify Site with Patient/Guarantor: N/A. Relevant Radiology Images available: Yes. Pre-op teaching completed and patient verbalized understanding. The risks, benefits, and alternatives of sedation and/or procedure were discussed by physician. The patient agrees to continue. Procedure started. PERRLA. Strong, equal hand program specialist bilaterally. Lungs clear x 5 lobes. IV Site on Arrival: 18 gauge in the left forearm. IV Fluids: 0.9% NaCl at KVO. 50 mL infused prior to laboratory apparatus glass grinder. Pre Procedural Pulses: bilateral dorsalis pedis was Doppled. Pre Procedural Pulses: bilateral posterior tibial was Absent. Pre Procedural Pulses: bilateral radial was 2+. Oxygen started at 2liters/min via nasal canula. popliteal was prepped with chloroprep then draped in the usual sterile fashion. Physician notified. Baseline sample Acquired. HR: 81 BPM. Physician scrubbed in. Time out performed with cath team. Lidocaine 1% infiltrated to the popliteal. Arterial access obtained with micropuncture set. 4fr pedal access sheath inserted OTW. contrast hand injected through the micropuncture sheath. glidewire inserted through the sheath. contrast hand injected through the sheath. glidecath inserted OTW. wire and catheter out. contrast hand injected through the sheath. contrast hand injected through the sheath. Sheath(s) removed and manual pressure held until hemostasis was achieved. Sterile 4x4 and Op-site applied to the puncture site. No oozing or hematoma noted. Post sheath removal instructions were given and the patient verbalized understanding. A Manual Compression was successful obtaining hemostatsis at the Right Popliteal insertion site. Post Procedure: Pulses reassessed and unchanged. PERRLA. Strong, equal hand program specialist bilaterally. No VTE prophylaxis required. Medication's Wasted: Lidocaine 1% = 10 mL. Medication's Wasted: Heparin = 1000 units. Total IV fluids: 100 mL. Contrast type used: Visipaque 320 mgI/mL, 500 mL bottle. Complications: None. Estimated blood loss: 5mL-10mL. Procedure completed. Patient transferred by stretcher to PACU. Vital chart was stopped. Procedure Medications Start: 10:30 AM Stop: 10:30 AM Medication: Versed Amount: 1 mg Route: I.V. Start: 10:30 AM Stop: 10:30 AM Medication: Fentanyl Amount: 50 mcg Start: 10:36 AM Stop: 10:36 AM Medication: Versed Amount: 1 mg Route: I.V. Start: 10:36 AM Stop: 10:36 AM Medication: Fentanyl Amount: 50 mcg I, the attending physician, have reviewed and verified all procedure medications. Yes, all medications given per verbal order History/Risk Factors Hypertension: Yes Dyslipidemia: No Peripheral Arterial Disease (PAD): Yes Obesity: No Renal Disease: No Prior Interventions PCI: No CABG: No Valve Surgery: No Report Signatures Finalized by Alvin Adrian MD on 05/11/2021 10:45 AM
[2021-05-04] MEDS: diphenhydrAMINE 50 mg Capsule PO (09:30)
[2021-05-04 09:56] LABS: Glucose Point of Care 116 mg/dL (70-110)
[2021-05-04] MEDS: sodium chloride 0.9% 1,000 ML 50 ML IV (10:01)
--- NOTE | 2021-05-04 10:26 | W.PM.OPSFHP ---
Same Day Surgery H&P Indication for Procedure/HPI DATE OF PROCEDURE: May 04, 2021 CHIEF COMPLAINT/INDICATIONFOR SURGICAL PROCEDURE: Severe lifestyle limiting claudication PREOP DIAGNOSIS: Life style limiting claudication PLANNED PROCEDRUE: Operation Date: 05/04/21 10:00 Proposed Procedures p Peripheral Diagnostic [id number] [id number](Not Applicable) - Alvin Adrian M.D Peripheral intervention 65-year-old man with a history of tobacco abuse, diabetes, pacemaker placed for sick sinus syndrome, dyslipidemia, history of coronary disease and myocardial infarction, peripheral artery disease, and hypertension. Patient has severe peripheral artery disease and has had multiple procedures done for that. He recently underwent revascularization of left lower extremity. He has occluded right common iliac frequency and the duration of these episodes have not changed. Proximal popliteal artery. Long segment occlusion. We had attempted intervention from pedal access several months ago however it failed. Plan is to perform possible intervention from the right popliteal access. ROS CONSTITUTIONAL: No fever or chills. [] EYES: No blurring of vision or other visual disturbances lately. [] ENT: No hoarseness of voice, auditory disturbances or sore throat. [] CARDIOVASCULAR: As mentioned above. [] RESPIRATORY: No significant cough. [] GASTROINTESTINAL: No hematemesis or melena. [] GENITOURINARY: No dysuria or hematuria. [] INTEGUMENTARY: No skin rashes or history of skin cancer. [] NEURO: No transient ischemic attacks or amaurosis. [] PSYCHIATRIC: No history of psychosis or major depression. [] HEMATOLOGIC: No bleeding disorders or significant anemia. [] ENDOCRINE: No history of polyuria or polydipsia. [] MUSCULOSKELETAL: Severe right sided claudication ALLERGY/IMMUNOLOGY: As mentioned above. [] Medications/Allergies* Home Medications Medication Instructions Recorded Confirmed Type ipratropium 20 mcg-albuterol 100 1 puff INHALATION Q4H PRN 12/16/19 05/04/21 History mcg/actuation mist for inhalation lisinopril 20 mg tablet 20 mg PO DAILY 12/16/19 05/04/21 History metformin 500 mg tablet 1,000 mg PO BID 12/16/19 05/04/21 History metoprolol tartrate 50 mg tablet 50 mg PO BID 12/16/19 05/04/21 History nitroglycerin 0.4 mg sublingual 0.4 mg SUBLINGUAL Q5M PRN 12/16/19 05/04/21 History tablet Allergies/Adverse Reactions Allergy/AdvReac Type Severity Reaction Status Date / Time No Known Allergies Allergy Verified 01/14/21 10:42 Current Medications: Generic Name Dose Route Start Last Admin Trade Name Freq PRN Reason Stop Dose Admin Sodium Chloride 1,000 mls @ 50 mls/hr 05/04/21 09:00 05/04/21 10:01 Sodium Chloride 0.9% IV 05/05/21 04:59 50 mls/hr .Q20H ONE Administration Pertinent History/Comorbid Conditions* Medical History (Updated 06/22/20 @ 08:25 by Alvin Adrian M.D) CAD (coronary artery disease) Dyslipidemia HTN (hypertension) Peripheral arterial disease Tobacco abuse Family History (Updated 12/16/19 @ 15:16 by Rupa Hood RN) Diabetes CAD (coronary artery disease) Cancer Stroke Social History Smoking and tobacco status: current every day smoker cigarettes Packs smoked per day: 1.5 Alcohol intake: never Other details last substance use: patient occasionally uses marijuana for pain. last used last week Pertinent Exam Findings alert, oriented x 3, clear to auscultation bilaterally and regular rate & rhythm Conscious Sedation Assessment PATIENT ASSESSED PRIOR TO SEDATION, WITH NO CHANGE NOTED: Yes AIRWAY EVAL/ANESTHESIA PLAN: normal airway, see other exam findings, ASA III, Monitored Anesthesia, Local Anesthesia, Risks, benefits & alternatives of sedation and/or procedure discussed and Patient agrees to continue as planned Recommendations Surgery/Procedure today (Peripheral diagnostic angiogram with peripheral intervention) Coding Level of Care Code Acute Carpet Yarn Winder Operator for Alonso Huang
--- NOTE | 2021-05-04 13:50 | PC.NURSE ---
1340- MOVED PT TO CSU, AND REPORT GIVEN TO ALEXIA. SIDE RAILS UP X2, CALL LIGHT GIVEN TO PATIENT. PUNCTURE SITE RT POPLITEAL DRY AND INTACT AND SITE SOFT.
--- NOTE | 2021-05-04 14:48 | PC.NURSE ---
received from gi lab into room 108 via bed at 1355.report received.pt is alert and awake.denies pain.sr on monitor.right popliteal drsg is dry and intact.no hematoma noted.right foot is cool to touch (warm above ankle).dopplerable pt pulse noted.unable to dopple dp pulse.pt will be referred to vascular surgeon in future.instructed in activity restrictions s/p arterial procedure..and instructed to notify staff for any bleeding,pain,numbness...or for any concerns at all.pt verb understanding of instructions.
--- NOTE | 2021-05-04 15:48 | PC.NURSE ---
pt up and ambulated in [place].tolerated well.no hematoma formation noted (right popliteal site).vss.
--- NOTE | 2021-05-04 16:38 | PC.NURSE ---
discharge instructions given and explained.pt verb understanding.discharged via w/c to exit.daughter to drive pt home.
--- NOTE | 2021-05-05 18:18 | PC.RESP ---
Smoking Cessation information sent to patient.
== END 2021-05-04 16:42 | disposition home or self-care (01) ==
LOC: CSU 13:47
PROVIDERS: Admitting Provider Internal Medicine; PCP Nurse Practitioner Family; Visit Provider Internal Medicine
DX: I70.211 Atherosclerosis of native arteries of extremities with intermittent claudication, right leg (principal); E11.9 Type 2 diabetes mellitus without complications; Z95.0 Presence of cardiac pacemaker; E78.5 Hyperlipidemia, unspecified; I25.10 Atherosclerotic heart disease of native coronary artery without angina pectoris; I25.2 Old myocardial infarction; I10 Essential (primary) hypertension; Z79.84 Long term (current) use of oral hypoglycemic drugs; Z82.49 Family history of ischemic heart disease and other diseases of the circulatory system; Z83.3 Family history of diabetes mellitus; F17.210 Nicotine dependence, cigarettes, uncomplicated
CPT/HCPCS: 36416; 75710; 82962; C1769; C1887; C1894; G0378; J1644; J2250; J3010; J7030; Q0163; Q9967

== ENCOUNTER → 2021-05-12 13:50 | Outpatient (BNVA) | payer MEDICARE, MEDICAID, SELFPAY | PROVIDERS: PCP Nurse Practitioner Family; Visit Provider Nurse Practitioner Family | DX: I73.9 Peripheral vascular disease, unspecified (principal); I10 Essential (primary) hypertension | CPT/HCPCS: 80048 ==

== ENCOUNTER → 2022-07-31 11:48 | Outpatient (BNVA) | payer MEDICARE, MEDICAID, SELFPAY | PROVIDERS: PCP Nurse Practitioner Family; Visit Provider Internal Medicine Cardiovascular Disease | DX: I73.9 Peripheral vascular disease, unspecified (principal); I25.10 Atherosclerotic heart disease of native coronary artery without angina pectoris; E78.5 Hyperlipidemia, unspecified; I10 Essential (primary) hypertension; F17.210 Nicotine dependence, cigarettes, uncomplicated | CPT/HCPCS: 99214 ==

== ENCOUNTER → 2022-12-08 08:20 | Outpatient (BNVA) | payer MEDICARE, MEDICAID, SELFPAY | PROVIDERS: PCP Nurse Practitioner Family; Visit Provider Internal Medicine | DX: I73.9 Peripheral vascular disease, unspecified (principal); I25.10 Atherosclerotic heart disease of native coronary artery without angina pectoris; E78.5 Hyperlipidemia, unspecified; I10 Essential (primary) hypertension; F17.210 Nicotine dependence, cigarettes, uncomplicated; Z95.0 Presence of cardiac pacemaker | CPT/HCPCS: 99214 ==

== ENCOUNTER → 2023-06-08 09:48 | Outpatient (BNVA) | payer MEDICARE, MEDICAID, SELFPAY | PROVIDERS: PCP Registered Nurse; Visit Provider Internal Medicine | DX: I73.9 Peripheral vascular disease, unspecified (principal); I25.10 Atherosclerotic heart disease of native coronary artery without angina pectoris; Z72.0 Tobacco use; E78.5 Hyperlipidemia, unspecified; I10 Essential (primary) hypertension | CPT/HCPCS: 99214 ==

== ENCOUNTER 2023-06-26 12:10 | Outpatient (CLI) | payer MEDICARE, MEDICAID, SELFPAY ==
--- NOTE | 2023-06-26 12:21 | CT_ITS ---
WS: [id number] LDCT LUNG CANCER SCREENING HISTORY: HX OF TOBACCO USE TECHNIQUE: Axial imaging performed from the apices to 1 cm below the costophrenic angles. Coronal and sagittal reformats are submitted with axial MIP series. All CT scans at [facility] use at least one of these dose optimization techniques: automated exposure control; mA and/or kV adjustment per patient size (includes targeted exams where dose is matched to clinical indication); or iterativ e reconstruction. DLP: 77.7 mGy DIvol: 2.0 COMPARISON: None available. Diagnostic quality: Satisfactory Lungs: Mild hyperexpansion of the lungs. Bilateral upper lobe noncalcified pulmonary nodules. The lar gest measures 5 mm RIGHT upper lobe, image 63 of series 5. LEFT upper lobe 4 mm nodule image 58 of se jose r 5. Additional 2 mm noncalcified nodule RIGHT upper lobe, image 62 of series 5. There are a few b enign scattered granulomata also. No endobronchial lesions. Heart: Normal size heart with no pericardial effusion.. Other findings: LEFT subclavian cardiac pacer. Small mediastinal and hilar lymph nodes. Small hiatal hernia. No adrenal mass. Advanced degenerative disc disease in the midthoracic spine. IMPRESSION: CT/CT lung screening 23314 LUNG-RADS: 2-Benign Appearance or Behavior FOLLOW UP: 12 Month: Continue annual screening with LDCT OTHER FINDINGS (S MODIFIER): None.
== END 2023-06-26 12:11 | disposition home or self-care (01) ==
LOC: RAD 12:12
PROVIDERS: PCP Registered Nurse; Visit Provider Registered Nurse
DX: Z87.891 Personal history of nicotine dependence (principal); Z12.2 Encounter for screening for malignant neoplasm of respiratory organs
CPT/HCPCS: 71271

== ENCOUNTER → 2024-01-23 09:39 | Outpatient (BNVA) | payer MEDICARE, MEDICAID, SELFPAY | PROVIDERS: PCP Registered Nurse; Visit Provider Nurse Practitioner Family | DX: I73.9 Peripheral vascular disease, unspecified (principal); I10 Essential (primary) hypertension; I25.10 Atherosclerotic heart disease of native coronary artery without angina pectoris; F17.210 Nicotine dependence, cigarettes, uncomplicated | CPT/HCPCS: 99214 ==

== ENCOUNTER → 2024-06-23 08:34 | Outpatient (BNVA) | payer MEDICARE, MEDICAID, SELFPAY | PROVIDERS: PCP Registered Nurse; Visit Provider Internal Medicine | DX: I73.9 Peripheral vascular disease, unspecified (principal); I25.10 Atherosclerotic heart disease of native coronary artery without angina pectoris; Z72.0 Tobacco use; E78.5 Hyperlipidemia, unspecified; I10 Essential (primary) hypertension | CPT/HCPCS: 99214 ==

== ENCOUNTER → 2025-01-14 09:02 | Outpatient (BNVA) | payer MEDICAID, SELFPAY | PROVIDERS: PCP Registered Nurse; Visit Provider Internal Medicine | DX: Z45.018 Encounter for adjustment and management of other part of cardiac pacemaker (principal) | CPT/HCPCS: 93296 ==

== ENCOUNTER 2025-04-16 07:15 | Outpatient (CLI) | payer MEDICARE, MEDICAID, SELFPAY ==
--- NOTE | 2025-04-16 07:20 | CT_ITS ---
WS: [id number] LDCT LUNG CANCER SCREENING TECHNIQUE: Noncontrast CT of the chest with coronal and sagittal reformatted images. CLINICAL INFORMATION: PERSONAL HX OF NICOTINE DEPENDENCE COMPARISON: 2022 DLP: 77.10 mGy.cm DIvol: Mean CTDIvol: 1.60 (mGy) All CT scans at [facility] use at least one of these dose optimization techniques: automated exposure control; mA and/or kV adjustment per patient size (includes targeted exams where dose is matched to clinical indication); or iterative reconstruction. FINDINGS: Hyperinflation. Multiple subcentimeter noncalcified nodules similar to previous. No new suspicious pulmonary parenchymal abnormalities. RIGHT upper lobe nodule measures 5 mm. LEFT upper lobe nodule measures 3 mm. LEFT hilar nodule measuring 3 mm. No mediastinal or hilar lymphadenopathy. Small esophageal hernia. Thoracic kyphosis with advanced spondylitic changes. Enlarged bilateral axillary lymph nodes. Aortic calcification. Coronary calcification. Slightly nodular RIGHT adrenal gland unchanged. Normal LEFT adrenal gland. Cholecystectomy clips. CT/CT lung screening [id number] IMPRESSION: Enlarged bilateral axillary lymph nodes nonspecific. This could be further eval uated with ultrasound. LUNG-RADS: 2S-Benign Appearance or Behavior with Significant Findings FOLLOW UP: 12 Month: Continue annual screening with LDCT
== END 2025-04-16 07:16 | disposition home or self-care (01) ==
LOC: RAD 07:15
PROVIDERS: PCP Registered Nurse; Visit Provider Nurse Practitioner Family
DX: Z12.2 Encounter for screening for malignant neoplasm of respiratory organs (principal); Z87.891 Personal history of nicotine dependence; R91.8 Other nonspecific abnormal finding of lung field; K44.9 Diaphragmatic hernia without obstruction or gangrene; M40.294 Other kyphosis, thoracic region; R59.1 Generalized enlarged lymph nodes; I70.0 Atherosclerosis of aorta; I25.10 Atherosclerotic heart disease of native coronary artery without angina pectoris; Z96.89 Presence of other specified functional implants
CPT/HCPCS: 71271

== ENCOUNTER 2025-05-20 15:37 | Outpatient (CLI) | payer MEDICARE, MEDICAID, SELFPAY ==
--- NOTE | 2025-05-20 15:54 | US_ITS ---
WS: [id number] ULTRASOUND SOFT TISSUES RIGHT axilla HISTORY: AXILLARY LYMPHADENOPATHY COMPARISON: 04/16/2025 TECHNIQUE: 2-D and color Doppler imaging is submitted. Bilateral axillary lymphadenopathy. There is several bilateral axillary lymph nodes with changing position of the fatty hilum and thickening of the cortex. Cortex thickening measures up to 10 mm. There is central vascularity. US/US soft tissue/extremity [id number] IMPRESSION: Bilateral axillary lymphadenopathy. Likely neoplastic. Consider metastatic dise ase or lymphoma. Less likely reactive.
== END 2025-05-20 15:38 | disposition home or self-care (01) ==
LOC: RAD 15:39
PROVIDERS: PCP Registered Nurse; Visit Provider Nurse Practitioner Family
DX: R59.1 Generalized enlarged lymph nodes (principal)
CPT/HCPCS: 76882